=== PATIENT | male | born 2000 | race Caucasian/White ===

== ENCOUNTER 2024-08-07 12:17 | Emergency (ER) | payer OTHER ==
[2024-08-07] VITALS (16 sets, daily range): BP systolic 97–143; BP diastolic 66–92
[~2024-08-07] VITALS: Ht 193 cm; Wt 120.0 kg
[2024-08-07] MEDS ORDERED: ASPIRIN 81 MG/TAB PO ONE (12:25)
[2024-08-07 13:00] LABS: BASO% 0.4 % (0-3); EOS% 2.7 % (0-8); HEMATOCRIT 48.9 % (39.0-50.0); HEMOGLOBIN 16.6 g/dl (14.0-18.0); LYMPH% 28.6 % (15-41); MEAN CELL VOLUME 83.7 fL CALC (80.0-100.0); MEAN CORPUSCULAR HGB 28.4 pG CALC (26.0-32.0); MEAN CORPUSCULAR HGB CONC 33.9 g/dL CAL (32.0-36.0); MONO% 9.7 % (2-13); NEUT# 5.24 thou/uL (1.82-7.42); NEUT% 58.6 % (42-76); RED BLOOD COUNT 5.84 mill/uL (4.70-6.10); RED CELL DISTRI WIDTH 12.3 % (11.5-15.5)
[2024-08-07 13:14] LABS: ALBUMIN 4.8 g/dL (3.2-5.0); ALKALINE PHOSPHATASE 81 u/l (38-126); ANION GAP 11 (6-22 (CALC)); BILIRUBIN, TOTAL 1.3 mg/dL (0.2-1.3); BUN 27 mg/dL (9-20); BUN/CREATININE RATIO 20 (12-20 (CALC)); CARBON DIOXIDE 25 mmol/l (22-30); CHLORIDE 108 mmol/l (95-108); CREATININE 1.4 mg/dL (0.7-1.3); ESTIMATED GFR 72 ML/MIN (>=90 (CALC)); POTASSIUM 4.4 mmol/l (3.5-5.1); SGOT/AST 42 u/l (17-59); SODIUM 139 mmol/l (137-146); TOTAL PROTEIN 8.1 g/dL (6.3-8.2)
[2024-08-07] MEDS ORDERED: SODIUM CHLORIDE 0.9% 1,000 ML IV ONE (13:25)
[2024-08-07 15:00] LABS: URINE BLOOD DIPSTICK Negative (NEGATIVE); URINE GLUCOSE - DIPSTICK Negative (NEGATIVE); URINE KETONE Trace mg/dL (NEGATIVE); URINE LEUK ESTERASE Negative (NEGATIVE); URINE NITRITE - DIPSTICK Negative (Negative); URINE PH 5.5 (4.5-8.0); URINE PROTEIN - DIPSTICK Negative (NEG-TRACE); URINE SPECIFIC GRAVITY >=1.030
[2024-08-07 15:01] LABS: URINE COLOR Yellow
[2024-08-07] MEDS ORDERED: KETOROLAC TROMETHAMINE 30 MG/ML SDV IV ONE (15:40)
[2024-08-07] MEDS ORDERED: NAPROXEN500 MG PO (15:45)
== END 2024-08-07 16:04 | disposition home or self-care (01) | DRG 313 ==
LOC: ED 12:17
PROVIDERS: Nurse Practitioner
DX: R07.9 Chest pain, unspecified (principal)